=== PATIENT | male | born 1950 | race Caucasian/White ===

== ENCOUNTER 2020-11-12 19:13 | Emergency (ER) | payer MEDICARE, OTHER ==
[2020-11-12 19:33] VITALS: BP 156/86; PULSE 75
[2020-11-12] MEDS ORDERED: Bacitracin Oint 1 GM U/D Packet TOP ONE (19:39)
[2020-11-12] MEDS ORDERED: Diphtheria,Pertussis(Acell),Tetanus Vaccine 0.5 ML Syringe IM ONE (19:39)
--- NOTE | 2020-11-12 20:03 | EDM.PDOC ---
ED HPI GENERAL MEDICAL PROBLEM - General Chief Complaint: Bite:Animal, Insect Stated Complaint: DOG BITE RT HAND Time Seen by Provider: 11/12/20 19:25 Source of Information: Reports: Patient History Limitations: Reports: No Limitations - History of Present Illness INITIAL COMMENTS - FREE TEXT/NARRATIVE: Ming is a 70-year-old male presenting to the ED for evaluation of dog bite to his right hand. The patient was bitten by his own dog, 3-year-old beagle when he bent over to parts picker their puppy. The dog became jealous and aggressive and latch down on Ming's hand. He sustained a 3 cm laceration on the dorsal right thumb, superficial laceration through the epidermis at the base of the thumb. A puncture wound over the dorsal proximal third finger and superficial scratches to the dorsal hand. Patient's last tetanus was on 05/26/2012. - Related Data Allergies Allergy/AdvReac Type Severity Reaction Status Date / Time amoxicillin Allergy Facial Verified 11/12/20 19:38 Swelling celecoxib [From Celebrex] Allergy Other Verified 11/12/20 19:38 povidone-iodine Allergy Other Verified 11/12/20 19:38 [From Betadine] soap [From Betadine] Allergy Other Verified 11/12/20 19:38 Home Meds: Home Meds Loratadine 10 mg PO DAILY 10/11/15 [History] Past Medical History HEENT History: Reports: Allergic Rhinitis, Hard of Hearing Gastrointestinal History: Reports: Hemorrhoids Musculoskeletal History: Reports: Arthritis, Back Pain, Chronic Neurological History: Reports: Headaches, Chronic - Past Surgical History HEENT Surgical History: Reports: Tonsillectomy GI Surgical History: Reports: Colonoscopy, Hernia, Inguinal Neurological Surgical History: Reports: Discectomy, Laminectomy Social & Family History - Tobacco Use Tobacco Use Status *Q: Never Tobacco User ED ROS GENERAL - Review of Systems Review Of Systems: See Below Constitutional: Reports: No Symptoms HEENT: Reports: No Symptoms Respiratory: Reports: No Symptoms Cardiovascular: Reports: No Symptoms Endocrine: Reports: No Symptoms GI/Abdominal: Reports: No Symptoms : Reports: No Symptoms Musculoskeletal: Reports: Hand Pain (Secondary to dog bite) Skin: Reports: Wound (A 3 cm laceration on the right thumb and numerous punctures to the dorsal hand and third finger from a dog bite.) Neurological: Reports: No Symptoms Psychiatric: Reports: No Symptoms Hematologic/Lymphatic: Reports: No Symptoms Immunologic: Reports: No Symptoms ED EXAM, ANIMAL BITE - Physical Exam Exam: See Below Exam Limited By: No Limitations General Appearance: Alert, No Apparent Distress Cardiovascular: Normal Peripheral Pulses Extremities: Normal Range of Motion, Other (There is a 3 cm laceration into the subcutaneous tissue at the dorsal right thumb. This gaps widely. He has a superficial laceration at the base of the right thumb that is only through the epidermis and not into the dermis. There is a small puncture wound on the dorsal proximal third finger which) Neurological: Alert, Oriented, Normal Cognition, No Motor/Sensory Deficits ED ANIMAL BITE PROCEDURES - Laceration/Wound Repair Right Digit - 1st (Thumb) Lac/Wound Length In cm: 3 Appearance: Subcutaneous Distal NVT: Neuro & Vascular Intact Anesthetic Type: Local Local Anesthesia - Lidocaine (Xylocaine): 1% Plain Local Anesthetic Volume: 2cc Skin Prep: Saline Exploration/Debridement/Repair: Wound Explored, In a Bloodless Field, Explored to Base Closed With: Sutures, Wound Adhesive Suture Size: 4-0 # of Sutures: 6 Suture Type: Nylon, Interrupted Sterile Dressing Applied: Nurse Tetanus Status Addressed: Yes Complications: No Course - Vital Signs Last Recorded V/S: Last Vital Signs Temp 36.5 C 11/12/20 19:42 Pulse 75 11/12/20 19:42 Resp 20 11/12/20 19:42 BP 156/86 H 11/12/20 19:42 Pulse Ox 98 11/12/20 19:42 - Orders/Labs/Meds Orders: Active Orders 24 hr Category Date Time Status Vaccines to be Administered [RC] PER UNIT ROUTINE Care 11/12/20 19:40 Active Meds: Medications Discontinued Medications Generic Name Dose Route Start Last Admin Trade Name Freq PRN Reason Stop Dose Admin Bacitracin 1 dose 11/12/20 19:39 11/12/20 19:47 Bacitracin Oint 1 Gm U/D Packet TOP 11/12/20 19:40 1 dose ONETIME ONE Administration Diphtheria/Tetanus/Acell Pertussis 0.5 ml 11/12/20 19:39 11/12/20 19:47 Diphtheria,Pertussis(Acell),Tetanus Vaccine 0.5 Ml Syringe IM 11/12/20 19:40 0.5 ml .ONCE ONE Administration Lidocaine HCl 5 ml 11/12/20 19:39 11/12/20 19:47 Lidocaine 1% 5 Ml Sdv INJECT 11/12/20 19:40 5 ml ONETIME ONE Administration - Re-Assessments/Exams Free Text/Narrative Re-Assessment/Exam: 11/12/20 19:59 Ming sustained a dog bite to multiple areas on his right hand including a deep laceration to the right thumb, superficial laceration at the base of the thumb and then several punctures on the dorsal hand and base of the third finger. We discussed management of these as dog bites apparently become infected. We have elected to close the sizable 3 cm laceration on the left thumb using 4-0 Ethilon requiring 6 simple interrupted sutures. I did leave one of the distal margins open to allow for drainage should this become suppurative. I did close the superficial wound on the base of the thumb with Dermabond. The others were dressed with bacitracin and Telfa dressing. Patient will need to have the sutures removed in 7 to 10 days. We are putting him on Bactrim DS 1 tablet twice daily for 7 days and metronidazole 1 tablet 3 times a day for 7 days for treatment of the dog bite. Indications to return to the ED were discussed. Departure - Departure Time of Disposition: 20:01 Disposition: Home, Self-Care 01 Clinical Impression: Dog bite of right hand without complication Qualifiers: Encounter type: initial encounter Qualified Code(s): S61.451A - Open bite of right hand, initial encounter; W54.0XXA - Bitten by dog, initial encounter Laceration of right thumb Qualifiers: Encounter type: initial encounter Damage to nail status: without damage Foreign body presence: without foreign body Qualified Code(s): S61.011A - Laceration without foreign body of right thumb without damage to nail, initial encounter - Discharge Information Instructions: Animal Bite, Adult, [id number], Laceration Care, Adult, [id number] Referrals: Mary Metcalf MD [Primary Care Provider] - Care Plan Goals: Your sutures will need to be removed in 7 to 10 days. You may do this at the clinic or return to the ED. Inherently, these wounds get infected due to the nature of the dog bite. We are putting you on 2 antibiotics to cover for this including Bactrim 1 tablet twice daily for 7 days and Flagyl 1 tablet 3 times a day for 7 days. Should you have worsening infection please return immediately to the ED for reevaluation as this usually indicates an anaerobic infection that can be quite significant. This rarely occurs but she should be aware of it. Sepsis Event Note (ED) - Evaluation Sepsis Screening Result: No Definite Risk - Focused Exam Vital Signs: Vital Signs Temp Pulse Resp BP Pulse Ox 11/12/20 19:42 36.5 C 75 20 156/86 H 98 11/12/20 19:29 36.5 C 75 20 156/86 H 98 - Problem List & Annotations (1) Dog bite of right hand without complication SNOMED Code(s): 677205846 Code(s): S61.451A - OPEN BITE OF RIGHT HAND, INITIAL ENCOUNTER; W54.0XXA - BITTEN BY DOG, INITIAL ENCOUNTER Status: Acute Priority: Medium Current Visit: Yes Qualifiers: Encounter type: initial encounter Qualified Code(s): S61.451A - Open bite of right hand, initial encounter; W54.0XXA - Bitten by dog, initial encounter (2) Laceration of right thumb SNOMED Code(s): 67719527920588120 Code(s): S61.011A - LACERATION W/O FB OF RIGHT THUMB W/O DAMAGE TO NAIL, INIT Status: Acute Priority: Medium Current Visit: Yes Qualifiers: Encounter type: initial encounter Damage to nail status: without damage Foreign body presence: without foreign body Qualified Code(s): S61.011A - Laceration without foreign body of right thumb without damage to nail, initial encounter - Problem List Review Problem List Initiated/Reviewed/Updated: Yes - My Orders Last 24 Hours: My Active Orders 11/12/20 19:40 Vaccines to be Administered [RC] PER UNIT ROUTINE - Assessment/Plan Last 24 Hours: My Active Orders 11/12/20 19:40 Vaccines to be Administered [RC] PER UNIT ROUTINE
== END 2020-11-12 20:17 | disposition home or self-care (01) ==
LOC: JP.ED 19:13
DX: S61.051A Open bite of right thumb without damage to nail, initial encounter (principal); S61.252A Open bite of right middle finger without damage to nail, initial encounter; Z88.0 Allergy status to penicillin; Z91.048 Other nonmedicinal substance allergy status; Z88.8 Allergy status to other drugs, medicaments and biological substances; Z23 Encounter for immunization; W54.0XXA Bitten by dog, initial encounter
CPT/HCPCS: 12002; 90471; 90715; 99283-25

== ENCOUNTER 2022-03-27 19:11 | Inpatient (IN) | payer MEDICARE, OTHER ==
[2022-03-27] MEDS ORDERED: Iopamidol 612 MG/ML 100 ML Bottle IV ONE (21:21)
[2022-03-27] MEDS ORDERED: HYDROmorphone 0.5 MG/0.5 ML Syringe ONE ×2 (21:30→23:42)
[2022-03-27] MEDS ORDERED: Ondansetron 4 MG/2 ML SDV ONE (21:30)
[2022-03-27] MEDS ORDERED: Lactated Ringers 1,000 ML IV ONE (23:40)
[2022-03-28] MEDS ORDERED: HYDROmorphone 0.5 MG/0.5 ML Syringe ONE ×4 (01:38→16:00)
[2022-03-28] MEDS ORDERED: Lactated Ringers 1,000 ML IV ONE ×3 (06:28→23:00)
[2022-03-28] MEDS ORDERED: Clindamycin Phosphate in D5W 900 MG in Premix Bag 1 BAG IV ONE ×4 (14:20→22:00)
[2022-03-28] MEDS ORDERED: Ondansetron 4 MG/2 ML SDV ONE (16:00)
[2022-03-28] MEDS ORDERED: Acetaminophen 325 MG Tab ONE ×2 (16:00)
[2022-03-28] MEDS ORDERED: HYDROmorphone 2 MG Tab ONE (16:00)
[2022-03-29] MEDS ORDERED: Clindamycin Phosphate in D5W 900 MG in Premix Bag 1 BAG IV ONE ×2 (06:00)
[2022-03-29] MEDS ORDERED: Lactated Ringers 1,000 ML IV ONE (07:00)
[2022-03-29] MEDS ORDERED: Tamsulosin 0.4 MG Cap.ER ONE (09:15)
[2022-04-22 15:34] LABS: ESTIMATED GFR 100 mL/min (>60)
== END 2022-03-29 12:00 | disposition home or self-care (01) | DRG 351 ==
LOC: JP.ED 19:11 → JP.ZCENSUS 23:00
PROVIDERS: ADMIT Surgery; ATTEND Surgery
PROC: 0YU50JZ Supplement Right Inguinal Region with Synthetic Substitute, Open Approach (ICD-10-PCS; principal; 2022-03-28)
PROC: 018 Peripheral Nervous System, Division (ICD-10-PCS; 2022-03-28)
DX: K40.31 Unilateral inguinal hernia, with obstruction, without gangrene, recurrent (principal); K50.90 Crohn's disease, unspecified, without complications
CPT/HCPCS: 36415; 74177; 80053; 81001; 83605; 83690; 85025; 85027; 86140; 87086; 88302; A9270-GY; C1713; C1781; J1170; J2405; J3490; J7120; Q9967; U0002

== ENCOUNTER 2025-05-24 07:01 | Day surgery (SDC) | payer MEDICARE, OTHER ==
[2025-05-24] MEDS ORDERED: Ondansetron 4 MG/2 ML SDV ONE (07:28)
[2025-05-24] MEDS ORDERED: Propofol 200 MG/20 ML SDV ONE (07:28)
[2025-05-24] MEDS ORDERED: Dexamethasone 4 MG/ML SDV ONE (07:28)
[2025-05-24] MEDS ORDERED: Glycopyrrolate 0.2 MG/ML 5 ML MDV ONE (07:28)
[2025-05-24] MEDS ORDERED: Succinylcholine 200 MG/10 ML MDV ONE (07:28)
[2025-05-24] MEDS ORDERED: fentaNYL 250 MCG/5 ML SDV ONE (07:28)
[2025-05-24 07:32] LABS: PLATELET COUNT,PLT 428.0 K/uL (130-375); RED BLOOD CELL COUNT 3.17 M/uL (4.14-5.76); WHITE BLOOD CELL COUNT,WBC 5.6 K/uL (3.2-11.0)
[2025-05-24] MEDS: Lactated Ringers 1,000 ML IV SCH (07:45)
[2025-05-24] MEDS: Clindamycin in 0.9 % Sod Chlor 900 MG in Premix Bag 1 BAG IV ONE (07:47)
[2025-05-24] MEDS ORDERED: Lactated Ringers 1,000 ML IV SCH (08:00)
[2025-05-24 08:09] LABS: CARBON DIOXIDE,CO2 30 mmol/L (21-32); CHLORIDE,CL 95 mmol/L (100-108); POTASSIUM,K 4.5 mmol/L (3.6-5.2); SODIUM,NA 132 mmol/L (140-148)
[2025-05-24 08:10] LABS: ALANINE AMINOTRANSFERASE,ALT 29 U/L (12-78); BLOOD UREA NITROGEN,BUN 8 mg/dL (7-18); CREATININE 0.5 mg/dL (0.8-1.3); EST CRCL DRUG DOSING (CG) 130.32 mL/min; ESTIMATED GFR 108 mL/min (>60); GLUCOSE RANDOM 101 mg/dL (74-106)
[2025-05-24] MEDS: Bupivacaine 0.25%/EPINEPHrine 1:200,000 30 ML SDV ONE (08:24)
[2025-05-24] MEDS ORDERED: fentaNYL 100 MCG/2 ML SDV ONE ×2 (08:41→09:10)
[2025-05-24 09:00] LABS: A/G RATIO 1.2 (1.2-2.2); ASPARTATE AMNIOTRANSFERASE,AST 22 U/L (15-37); BILIRUBIN TOTAL 0.9 mg/dL (0.2-1.0); PROTEIN TOTAL,TP 7.4 g/dL (6.4-8.2)
[2025-05-24] MEDS ORDERED: Lactated Ringers 1,000 ML ONE (09:40)
[2025-05-24 12:47] VITALS: BP 178/58; PULSE 77
[2025-05-24] MEDS: Ondansetron 4 MG/2 ML SDV IVPUSH PRN (12:52)
== END 2025-05-24 14:16 | disposition home or self-care (01) ==
LOC: JP.SDS 07:01
PROVIDERS: ATTEND Surgery
DX: K40.91 Unilateral inguinal hernia, without obstruction or gangrene, recurrent (principal); K40.90 Unilateral inguinal hernia, without obstruction or gangrene, not specified as recurrent; I10 Essential (primary) hypertension; Z88.1 Allergy status to other antibiotic agents; Z88.8 Allergy status to other drugs, medicaments and biological substances; Z91.09 Other allergy status, other than to drugs and biological substances; Z87.891 Personal history of nicotine dependence; Z79.899 Other long term (current) drug therapy
CPT/HCPCS: 36415; 49650; 49651; 80053; 85027; A9270; C1781; J0330; J1100; J1790; J2405; J2704; J2710; J3010; J7120; 00830-QZ; J0737; J1596; J3490